=== PATIENT | male | born 1960 | race Caucasian/White ===

== ENCOUNTER 2023-02-25 22:09 | Emergency (ER) | payer OTHER, SELFPAY ==
[2023-02-25 22:15] VITALS: BP 129/85; PULSE 83; RESP 20; TEMP 36.2; O2SAT 97
[2023-02-26 00:45] LABS: Appearance Urine Turbid (Clear); Bacteria Urine 1+ /hpf; Bilirubin Urine Negative (Negative); Blood Urine 2+ (Negative); Color Urine Yellow (Yellow); Glucose Urine UA Negative (Negative); Ketones Urine Negative (Negative); Leukocyte Esterase Ur 3+ LEU/UL (Negative); Nitrate Urine Negative (Negative); Non Pathogenic Casts 0-2; Protein Urine 2+ mg/dL (Negative); RBC Urine 21-50 /hpf (0-2); Specific Grav Ur 1.019 (1.001-1.035); Squamous Epithelial Cell Urine None seen /hpf (Few); WBC Urine >100 /hpf; pH Urine 6.5 (5.0-9.0)
[2023-02-26 01:01] VITALS: BP 122/79; PULSE 69; RESP 18; TEMP 36.6; O2SAT 99
[2023-02-26 01:07] LABS: Add Urine Microscopic? YES
--- NOTE | 2023-02-26 01:19 | ED.GENADULT ---
HPI - General Adult General Chief complaint: Urogenital-Male Stated complaint: URINARY S/S Time Seen by Provider: 02/26/23 01:09 History of Present Illness HPI narrative: Patient 63-year-old gentleman who presents the emergency department with chief complaint of urinary frequency and dysuria. The patient reports that over the last several days he has had urinary frequency has noticed that he started having burning with urination and has noticed that his stream has not been as strong. The patient denies flank pain denies abdominal pain denies fever nausea vomiting. The patient reports that he was at the hospital earlier today and had a elective cardioversion for atrial fibrillation. The patient denies any symptoms from that and denies any complications from that. The patient does report that he has called his urologist and is scheduled an appointment with Dr. Howell Related Data Allergies Allergy/AdvReac Type Severity Reaction Status Date / Time No Known Allergies Allergy Unverified 02/25/23 22:24 Review of Systems Review of Systems: A 10 system review of systems was completed on the patient and is negative except for what is stated in the HPI. Nursing and ancillary documentation was reviewed. Exam Narrative: GENERAL: Well-appearing, well-nourished, and in no acute distress. HEAD: Normocephalic, atraumatic. EYES: PERRLA and EOMI. ENT: Nares clear, no rhinorrhea or epistaxis. Mucous membranes moist. NECK: Supple. CHEST: Clear to auscultation. No respiratory distress. HEART: Regular rate and rhythm. No murmur heard. Normal peripheral pulses. ABDOMEN: Soft, nontender, nondistended, normal active bowel sounds. EXTREMITIES: Normal range of motion. No edema. SKIN: Warm, dry, no rash. NEURO: No focal deficits. Alert and oriented x3. PSYCH: Normal mood and affect. Course Vital Signs Vital signs: Vital Signs Temperature 36.2 C L 02/25/23 22:15 Pulse Rate 83 02/25/23 22:15 Respiratory Rate 20 02/25/23 22:15 Blood Pressure 129/85 02/25/23 22:15 Pulse Oximetry 97 02/25/23 22:15 Oxygen Delivery Room Air 02/25/23 22:15 Temperature 36.6 C 02/26/23 01:01 Pulse Rate 69 02/26/23 01:01 Respiratory Rate 18 04/14/23 01:01 Blood Pressure 122/79 02/26/23 01:01 Pulse Oximetry 99 02/26/23 01:01 Oxygen Delivery Room Air 02/25/23 22:15 Medical Decision Making MDM Narrative Medical decision making narrative: Differential diagnosis includes UTI, kidney stone, Urinalysis was obtained which showed greater than 100 what white blood cells in the urine. Only 21-50 RBCs 3+ leuks 1+ bacteria At this time the patient is not showing any evidence of sepsis he has a temperature of 36.2 heart rate 83 and blood pressure 129/85 patient has no nausea no vomiting no abdominal pain or flank pain consistent with pyelonephritis or kidney stones. The patient does report that he has prior history of stones but does report that this feels completely different from whenever he has had episodes of that. The patient will be started on Keflex in the emergency department and will be discharged home on Keflex. A urine culture has been sent Vital Signs Vital Signs: Vital Signs Temperature 36.2 C L 02/25/23 22:15 Pulse Rate 83 02/25/23 22:15 Respiratory Rate 20 02/25/23 22:15 Blood Pressure 129/85 02/25/23 22:15 Pulse Oximetry 97 02/25/23 22:15 Oxygen Delivery Room Air 02/25/23 22:15 Temperature 36.6 C 02/26/23 01:01 Pulse Rate 69 02/26/23 01:01 Respiratory Rate 18 02/26/23 01:01 Blood Pressure 122/79 02/26/23 01:01 Pulse Oximetry 99 02/26/23 01:01 Oxygen Delivery Room Air 02/25/23 22:15 Lab Data Labs: Lab Results 02/25/23 Range/Units 23:55 Urine Color Yellow (Yellow) Urine Appearance Turbid H (Clear) Urine pH 6.5 (5.0-9.0) Ur Specific [place] 1.019 (1.001-1.035) Urine Protein 2+ H (Negative) mg/dL Urine Glucose (UA) Negative
[2023-02-26] MEDS: CEPHALEXIN 500 MG CAPSULE PO (01:33)
[2023-02-26 01:52] VITALS: BP 118/79; PULSE 69; RESP 18; TEMP 36.6; O2SAT 99
== END 2023-02-26 01:52 | disposition home or self-care (01) ==
PROVIDERS: Physician Assistant; Emergency Provider Emergency Medicine
DX: N39.0 Urinary tract infection, site not specified (principal)
CPT/HCPCS: 81001; 87086; 99283; A9270

== ENCOUNTER 2023-03-02 15:35 | Outpatient (CLI) | payer OTHER, SELFPAY ==
--- NOTE | ~2023-03-02 | XR_ITS ---
XR abdomen/kub 1V 03/02/2023 15:53 INDICATION: Right flank pain TECHNIQUE: KUB COMPARISON: Comparison to multiple prior studies sequentially, with oldest reviewed study dated 08/06. FINDINGS: Bowel gas pattern is normal. There is no evidence of free air, mass, organomegaly, ascites or obstruction. There are bilateral renal stones. There are new calcifications in the right pelvis, possibly bladder stones. The bones appear intact. IMPRESSION: 1: Possible bladder stones in the right pelvis. 2: Bilateral nephrolithiasis.. Reviewed, dictated and finalized at location A.
== END 2023-03-02 15:36 | disposition home or self-care (01) ==
PROVIDERS: Visit Provider Nurse Practitioner Adult Health
DX: N20.0 Calculus of kidney (principal); R10.9 Unspecified abdominal pain
CPT/HCPCS: 74018